=== PATIENT | male | born 2000 | race Hispanic/Latino ===

== ENCOUNTER 2021-06-30 22:18 | Emergency (ER) | payer SELFPAY ==
[2021-07-01] MEDS ORDERED: cefTRIAXone\\ROCEPHIN 500 MG VIAL ONE (00:23)
[2021-07-01] MEDS ORDERED: Xylocaine 1% w/ Epi 1:100K 10 ML VIAL ONE (00:24)
== END 2021-07-01 00:55 | disposition home or self-care (01) ==
LOC: ERS 22:18
DX: N45.1 Epididymitis (principal)
CPT/HCPCS: 76870; 93976; J0696